=== PATIENT | male | born 1980 | race Caucasian/White ===

== ENCOUNTER 2020-10-20 15:38 | Emergency (ER) | payer OTHER, SELFPAY ==
[2020-10-20 15:49] VITALS: BP 142/76; PULSE 112; RESP 18; TEMP 36.7; O2SAT 97; BMI 29.7
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
[2020-10-20 16:31] VITALS: BP 133/71; PULSE 105; O2SAT 95
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
[2020-10-20 17:00] VITALS: BP 132/51; PULSE 86; RESP 19; O2SAT 98
[2020-10-20 17:13] VITALS: BP 137/78; PULSE 83; RESP 20; TEMP 36.8; O2SAT 98
== END 2020-10-20 17:14 | disposition home or self-care (01) ==
PROVIDERS: Emergency Provider Family Medicine; PCP Emergency Medicine
DX: M62.830 Muscle spasm of back (principal); M54.5 Low back pain; V49.3XXA Car occupant (driver) (passenger) injured in unspecified nontraffic accident, initial encounter
CPT/HCPCS: 72072; 72100; 96372; 99282

== ENCOUNTER 2021-02-19 02:26 | Emergency (ER) | payer MEDICARE, MEDICAID, SELFPAY ==
[2021-02-19] VITALS (13 sets, daily range): BP systolic 104–128; BP diastolic 60–84; PULSE 69–104; RESP 16–19; TEMP 36.4; O2SAT 95–100; BMI 29.7
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
--- NOTE | 2021-02-19 02:47 | ECG_ITS ---
APPROVED REPORT Exam: Resting ECG HR:99 bpm ECG Measurements Heart Rate 99 AXES UT 160 P 71 QRSd 86 QRS 67 QT 338 T 49 QTc 433 Conclusion Normal sinus rhythm Possible Left atrial enlargement Anterior infarct, age undetermined Abnormal ECG Electronically signed by : Ramana Montoya, 02/19/2021 21:35:53
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
[2021-02-19 04:04] LABS: Basophils # 0.1 K/mm3 (0-0.2); Basophils % 0.6 % (0.1-2.0); Chloride 103 mmol/L (98-107); Eosinophils # 0.1 K/mm3 (0.0-0.4); Eosinophils % 0.6 % (0.1-12.0); Hemoglobin 14.2 g/dL (14.1-18.0); Lymphocytes # 2.2 K/mm3 (0.7-4.5); Lymphocytes % 15.2 % (10-50); Mean Corpuscular HGB Conc 34.6 g/dL (31.8-35.4); Mean Corpuscular Hemoglobin 29.2 pg (27.0-31.2); Mean Corpuscular Volume 84.5 fl (80-94); Mean Platelet Volume 7.9 fl (7.4-10.4); Monocytes # 0.8 K/mm3 (0.1-1.0); Monocytes % 5.9 % (1.7-9.3); Neutrophils % 77.7 % (37.0-80.0); Platelet Count 292 K/mm3 (142-424); Red Blood Count 4.85 M/mm3 (4.60-6.20); Red Cell Distribution Width 13.3 % (11.5-17.5); White Blood Count 14.1 K/mm3 (4.8-10.8)
[2021-02-19 04:05] LABS: Potassium 3.7 mmoL/L (3.5-5.1); Sodium 140 mmol/L (136-145)
--- NOTE | 2021-02-19 04:05 | HMH.EDWEAK ---
ED Disposition Clinical Impression: Weakness Disposition: Home, Self-Care Condition on Discharge: Good Instructions: DI for Nausea -- Adult Additional Instructions: see pcp for follow up Referrals: Provider,Marcie, [Primary Care Provider] - - Critical Care Critical Care Time: No Attestation: On 02/19/21, the high probability of a clinically significant, sudden or life threatening deterioration of the following system(s) required my full and direct attention, intervention and personal management. The time I documented below is in addition to time spent performing reported procedures but includes the following listed in this critical care notation. Medical Decision Making - Medical Records Medical records reviewed: Yes: I reviewed the patient's medical records. - Kadeem Inquiry Pt receiving controlled substance: No Vital Signs: 02/19/21 02:19 02/19/21 02:30 02/19/21 03:00 Temperature 97.6 F Temperature Source Oral Pulse Rate 98 H 101 H Pulse Rate [Left Radial] 104 H Respiratory Rate 16 18 19 Blood Pressure 125/73 119/63 Blood Pressure [Right Arm] 119/63 Blood Pressure Mean [Right Arm] 81 Blood Pressure Source Automatic Cuff Blood Pressure Source [Right Arm] Automatic Cuff Blood Pressure Position Sitting Blood Pressure Position [Right Arm] Sitting 02 Sat by Pulse Oximetry 95 95 96 Oxygen Delivery Method Room Air Room Air Room Air 02/19/21 03:30 02/19/21 04:00 02/19/21 04:30 Temperature Temperature Source Pulse Rate 97 H 100 H 94 H Pulse Rate [Left Radial] Respiratory Rate 16 18 18 Blood Pressure 123/71 124/69 113/71 Blood Pressure [Right Arm] Blood Pressure Mean [Right Arm] Blood Pressure Source Automatic Cuff Automatic Cuff Automatic Cuff Blood Pressure Source [Right Arm] Blood Pressure Position Sitting Sitting Sitting Blood Pressure Position [Right Arm] 02 Sat by Pulse Oximetry 96 95 99 Oxygen Delivery Method Room Air Room Air Room Air 02/19/21 05:00 02/19/21 05:15 02/19/21 05:30 Temperature Temperature Source Pulse Rate 83 69 98 H Pulse Rate [Left Radial] Respiratory Rate 18 18 Blood Pressure 108/70 L 128/84 116/60 Blood Pressure [Right Arm] Blood Pressure Mean [Right Arm] Blood Pressure Source Blood Pressure Source [Right Arm] Blood Pressure Position Sitting Blood Pressure Position [Right Arm] 02 Sat by Pulse Oximetry 99 96 97 Oxygen Delivery Method Room Air 02/19/21 06:01 02/19/21 06:30 02/19/21 07:00 Temperature Temperature Source Pulse Rate 97 H 88 91 H Pulse Rate [Left Radial] Respiratory Rate 18 18 Blood Pressure 108/65 L 104/60 L 124/67 Blood Pressure [Right Arm] Blood Pressure Mean [Right Arm] Blood Pressure Source Blood Pressure Source [Right Arm] Blood Pressure Position Blood Pressure Position [Right Arm] 02 Sat by Pulse Oximetry 100 98 98 Oxygen Delivery Method - Lab Data Lab results reviewed: Yes: I reviewed the patient's lab results. Lab Results 02/19/21 02:10: WBC 14.1 H, RBC 4.85, Hgb 14.2, Hct 41.0 L, MCV 84.5, MCH 29.2, MCHC 34.6, RDW 13.3, Plt Count 292, MPV 7.9, Neut % (Auto) 77.7, Lymph % (Auto) 15.2, [place] % (Auto) 5.9, Eos % (Auto) 0.6, Baso % (Auto) 0.6, Neut # (Auto) 11.0 H, Lymph # (Auto) 2.2, [place] # (Auto) 0.8, Eos # (Auto) 0.1, Baso # (Auto) 0.1 02/19/21 02:10: Sodium 140, Potassium 3.7, Chloride 103, Carbon Dioxide 27, Anion Gap 13.7, BUN 17, Creatinine 1.10, Estimated Creat Clear 129, Estimated GFR 74, Est GFR ( Amer) 90, Glucose 118 H, Calcium 9.3, Total Bilirubin 0.4, AST 46, ALT 42, Alkaline Phosphatase 64, Troponin I < 0.01, Total Protein 7.2, Albumin 4.2, Globulin 3.0, Albumin/Globulin Ratio 1.4 02/19/21 02:43: Lactate 2.5 H Result diagrams: 02/19/21 02:10 02/19/21 02:10 Orders (Tests/Meds): ORDERS Category Date Time Status Troponin I Q3H Lab 02/19/21 07:04 Received Troponin I Q3H Lab 02/19/21 09:00 Ordered
[2021-02-19 04:07] LABS: Alanine Aminotransferase 42 U/L (12-78); Aspartate Amino Transferase 46 U/L (17-59); Blood Urea Nitrogen 17 mg/dl (9-20); Creatinine Clearance Estimated 129 mL/min (50-200); Estimated Glomerular Filt Rate 74 ml/min (>60); GFR (African American) 90 ML/MIN (>60)
[2021-02-19 04:08] LABS: Albumin Level 4.2 g/dl (3.5-5.0); Albumin/Globulin Ratio 1.4 (1.1-1.8); Alkaline Phosphatase 64 U/L (38-126); Anion Gap 13.7 mEq/L (5-15); Bilirubin,Total 0.4 mg/dl (0.2-1.3); Calcium 9.3 mg/dl (8.4-10.2); Carbon Dioxide 27 mmol/L (22.0-30.0); Glucose 118 mg/dl (74-100); Total Protein,Serum 7.2 g/dl (6.3-8.2)
[2021-02-19 04:31] LABS: Troponin I < 0.01 ng/ml (0.00-0.034)
[2021-02-19 05:07] LABS: Lactic Acid 2.5 mmol/L (0.7-2.1)
--- NOTE | 2021-02-19 07:50 | PC.NURSE ---
pt eating breakfast
[2021-02-19 07:53] LABS: Troponin I < 0.01 ng/ml (0.00-0.034)
--- NOTE | 2021-02-19 08:19 | PC.NURSE ---
spoke with lab and since patient is getting discharged, doctor does not want blood cultures or second troponin. Lab informed
[2021-02-19 09:08] LABS: Reflex Lactic Add Lactic Reflex
== END 2021-02-19 08:17 | disposition home or self-care (01) ==
PROVIDERS: Emergency Provider Emergency Medicine
DX: R53.83 Other fatigue (principal); M25.532 Pain in left wrist; Z88.5 Allergy status to narcotic agent; F17.210 Nicotine dependence, cigarettes, uncomplicated
CPT/HCPCS: 36415; 71046; 73110; 80053; 83605; 84484; 85025; 93005; 99283

== ENCOUNTER 2021-05-09 06:06 | Emergency (ER) | payer MEDICARE, MEDICAID, SELFPAY ==
[2021-05-09] VITALS (17 sets, daily range): BP systolic 103–137; BP diastolic 54–81; PULSE 66–97; RESP 12–21; TEMP 37.2; O2SAT 92–98; BMI 33.3
--- NOTE | 2021-05-09 06:38 | HMH.EDOD ---
ED Disposition Clinical Impression: Poisoning by opiate or related narcotic Disposition: Home, Self-Care Condition on Discharge: Good Instructions: DI for Drug Overdose in Adults Additional Instructions: please call pcp for follow up Referrals: Provider,Marcie, [Primary Care Provider] - - Critical Care Critical Care Time: No Attestation: On 05/09/21, the high probability of a clinically significant, sudden or life threatening deterioration of the following system(s) required my full and direct attention, intervention and personal management. The time I documented below is in addition to time spent performing reported procedures but includes the following listed in this critical care notation. Medical Decision Making - Medical Records Medical records reviewed: Yes: I reviewed the patient's medical records. - Kadeem Inquiry Pt receiving controlled substance: No Vital Signs: 05/09/21 06:01 05/09/21 06:30 05/09/21 06:49 Temperature 99.0 F Temperature Source Oral Pulse Rate 89 90 Pulse Rate [Left] 97 H Respiratory Rate 16 14 21 Blood Pressure 114/56 L 131/69 Blood Pressure [Left Arm] 134/74 Blood Pressure Mean 75 78 Blood Pressure Mean [Left Arm] 94 02 Sat by Pulse Oximetry 98 95 97 Oxygen Delivery Method Room Air 05/09/21 07:02 Temperature Temperature Source Pulse Rate 82 Pulse Rate [Left] Respiratory Rate 21 Blood Pressure 137/54 L Blood Pressure [Left Arm] Blood Pressure Mean 81 Blood Pressure Mean [Left Arm] 02 Sat by Pulse Oximetry 97 Oxygen Delivery Method Orders (Tests/Meds): ED MEDICATIONS Generic Name Dose Route Start Last Admin Trade Name Freq PRN Reason Stop Dose Admin Naloxone HCl 2 mg 05/09/21 07:31 05/09/21 07:37 Naloxone 2mg/2ml Syringe IV 06/08/21 07:30 2 mg Q5MINP PRN Administration Sedation Discontinued Medications Generic Name Dose Route Start Last Admin Trade Name Freq PRN Reason Stop Dose Admin Sodium Chloride 1,000 mls @ 999 mls/hr 05/09/21 06:30 05/09/21 06:28 Sod Chlor 0.9% 1000ml Bag IV 05/09/21 07:30 999 mls/hr .Q1H1M CHRISTINA Administration Naloxone HCl 1 mg 05/09/21 06:26 05/09/21 06:26 Naloxone 2mg/2ml Syringe IV 05/09/21 06:27 1 mg ONCE ONE Administration Naloxone HCl 2 mg 05/09/21 06:42 05/09/21 06:32 Naloxone 2mg/2ml Syringe IV 05/09/21 06:43 2 mg ONCE ONE Administration Naloxone HCl 2 mg 05/09/21 06:52 05/09/21 07:33 Naloxone 2mg/2ml Syringe IV 05/09/21 06:53 2 mg ONCE ONE Administration Naloxone HCl 2 mg 05/09/21 06:53 05/09/21 07:33 Naloxone 2mg/2ml Syringe IV 05/09/21 06:54 2 mg ONCE ONE Administration Naloxone HCl 4 mg 05/09/21 07:55 05/09/21 07:57 Naloxone 2mg/2ml Syringe IV 05/09/21 07:56 4 mg ONCE ONE Administration Ondansetron HCl 4 mg 05/09/21 06:25 05/09/21 06:32 Ondansetron 4mg/2ml Vial IV 05/09/21 06:26 4 mg ONCE ONE Administration - Reevaluation(s) Time: 07:34 Reevaluation #1: more alert after narcan - resp status stable Medical Decision Narrative: opiate toxicity - responded to narcan Overdose HPI - General Chief Complaint: Overdose Stated Complaint: OD Time Seen by Provider: 05/09/21 06:15 Mode of Arrival: EMS Source of Information: Patient, EMS, Medical Record Limitations: No Limitations Description of Symptoms (Recalled from ER Triage Doc. by RN): Pt brought in via EMS & [facility] deputy d/t OD. Pt reports to have taken Perc 30s, fentanyl, and xanax this eveing. Pt reports to have chewed, swallowed, and shot up these drugs. He chika any pain. Only c/o nausea and chills. Pt is wet and he was given warm blankets, IV established, and zofran administered. - History of Present Illness HPI Narrative: pt with reported to have have used fentanyl and xanax complaint: accidental overdose Onset (ago): hour(s) Context: Accidental Overdose: wanted to get high Treatments Prior to Arrival: none
--- NOTE | 2021-05-09 07:58 | PC.NURSE ---
pt still not responding well more narcan given with no changes .
--- NOTE | 2021-05-09 09:39 | PC.NURSE ---
pt waking up much easier , but still very drowsey
--- NOTE | 2021-05-09 16:09 | PC.NURSE ---
pt is becoming more alert, drank a few sips of water at this time, was able to stand unassisted, walked to the door and back of room with assist of staff x1. Pt still very drowsy, attempts to fall asleep easily but wakes easily. will continue to monitor
== END 2021-05-09 18:09 | disposition home or self-care (01) ==
PROVIDERS: Emergency Provider Emergency Medicine
DX: T40.411A Poisoning by fentanyl or fentanyl analogs, accidental (unintentional), initial encounter (principal); T42.4X1A Poisoning by benzodiazepines, accidental (unintentional), initial encounter; Y92.009 Unspecified place in unspecified non-institutional (private) residence as the place of occurrence of the external cause
CPT/HCPCS: 96365; 96367; 96375; 96376; 99284; J2310; J2405